=== PATIENT | male | born 1990 | race Caucasian/White ===

== ENCOUNTER 2023-01-02 14:54 | Emergency (ER) | payer OTHER ==
[~2023-01-02] VITALS: Ht 177.8 cm; Wt 95.2 kg
[2023-01-02] MEDS ORDERED: OMEPRAZOLE20 MG PO (15:38)
[2023-01-02 16:55] VITALS: BP 126/81
== END 2023-01-02 16:57 | disposition home or self-care (01) ==
LOC: ED 14:54
DX: S60.222A Contusion of left hand, initial encounter (principal); W23.0XXA Caught, crushed, jammed, or pinched between moving objects, initial encounter; Z79.899 Other long term (current) drug therapy
CPT/HCPCS: 73130; 99283-25